=== PATIENT | female | born 1965 | race Caucasian/White ===

== ENCOUNTER 2019-06-25 12:21 | Emergency (ER) | payer SELFPAY ==
[2019-06-25] MEDS ORDERED: IPRATROPIUM/ALBUTEROL 0.5-2.5 MG/3 ML AMPUL NEB ONE (12:33)
--- NOTE | 2019-06-25 12:33 | ER Document Report ---
ED Medical Screen (RME) - General Chief Complaint: High Blood Pressure Stated Complaint: HIGH BLOOD PRESSURE Time Seen by Provider: 06/25/19 12:29 - HPI Notes: 06/25/19 12:29 Patient is a 53-year-old female with no significant past medical history aside from tobacco abuse who presents complaining of nasal congestion/discharge, postnasal drip, semi-productive cough, wheezing x5 days. She was seen by her PCM yesterday and was placed on steroids and nasal spray. She did not have an XR at that time and dx'd viral. Pt had noted elevated BP at the office yesterday and today. She is not on BP meds, but has had issues with BP in the past. No CP/SOB otherwise aside from the wheeze. No fever. I have treated and performed a rapid initial assessment of this patient. A comprehensive ED assessment and evaluation of the patient, analysis of test results and completion of medical decision making process will be conducted by additional ED providers. PHYSICAL EXAMINATION: GENERAL: Well-appearing, well-nourished and in no acute distress. A&Ox4. Answers questions appropriately. Lungs: Wheezing bilaterally. - Related Data Allergies/Adverse Reactions: No Known Allergies Allergy (Verified 06/25/19 12:28) Physical Exam - Vital signs Vitals: Temp Pulse Resp BP Pulse Ox 98.3 F 93 18 215/84 H 95 06/25/19 12:24 06/25/19 12:24 06/25/19 12:24 06/25/19 12:24 06/25/19 12:24 Course - Vital Signs Vital signs: Temp Pulse Resp BP Pulse Ox 98.3 F 93 18 215/84 H 95 06/25/19 12:24 06/25/19 12:24 06/25/19 12:24 06/25/19 12:24 06/25/19 12:24
--- NOTE | 2019-06-25 13:08 | RADIOLOGY REPORT (SQ) ---
EXAM DESCRIPTION: CHEST 2 VIEWS COMPLETED DATE/TIME: 06/25/2019 12:48 pm REASON FOR STUDY: cough COMPARISON: None. EXAM PARAMETERS: NUMBER OF VIEWS: two views TECHNIQUE: Digital Frontal and Lateral radiographic views of the chest acquired. RADIATION DOSE: NA LIMITATIONS: Overlying breast tissue. FINDINGS: LUNGS AND PLEURA: No opacities, masses or pneumothorax. No pleural effusion. MEDIASTINUM AND HILAR STRUCTURES: No masses or contour abnormalities. HEART AND VASCULAR STRUCTURES: Heart normal size. No evidence for failure. BONES: No acute findings. HARDWARE: None in the chest. OTHER: No other significant finding. IMPRESSION: NO ACUTE RADIOGRAPHIC FINDING IN THE CHEST. TECHNICAL DOCUMENTATION: JOB ID: [id number] [employer]- All Rights Reserved Reading location - IP/workstation name: [email or web address]
[2019-06-25] MEDS ORDERED: CLONIDINE HCL 0.1 MG TABLET PO ONE (13:45)
--- NOTE | 2019-06-25 13:49 | ER Document Report ---
ED General - General Chief Complaint: High Blood Pressure Stated Complaint: HIGH BLOOD PRESSURE Time Seen by Provider: 06/25/19 12:29 Notes: Patient is here to get a prescription for blood pressure medications. Coincidentally, she is also noted to be having some difficulty breathing and wheezing. Patient says she is been congested and coughing since the early part of this past week. She went to a local clinic on Thursday who told her that her condition was viral. She returned to that clinic yesterday because her blood pressure was up, 202/133, and they declined to give her medications for that because she was not an established patient. Somewhat better in 1 of those 2 visits, the patient was put on prednisone, a fairly good dose starting at 80 mg daily and declining from there. She was also put on an albuterol inhaler. She continues to have a cough and congestion and foamy phlegm being produced. Has been taking [id number] Mucinex. She is concerned and complaining primarily about her blood pressure and the fact that she could not get a prescription at the urgent care that where she was seen. Denies any fevers. Patient has a history of high blood pressure and ran out of her medications about 15 years ago and has not gotten them filled since then. Also, patient does smoke about a pack of cigarettes daily. TRAVEL OUTSIDE OF THE [place] IN LAST 30 DAYS: No - Related Data Allergies/Adverse Reactions: No Known Allergies Allergy (Verified 06/25/19 12:28) Past Medical History - Social History Smoking Status: Current Every Day Smoker Family History: Reviewed & Not Pertinent Patient has suicidal ideation: No Patient has homicidal ideation: No - Past Medical History Cardiac Medical History: Reports: Hx Hypertension Denies: Hx Coronary Artery Disease Pulmonary Medical History: Reports: Hx COPD Review of Systems - Review of Systems Notes: CONSTITUTIONAL : Denies fever. See HPI. CARDIOVASCULAR: Denies chest pain. RESPIRATORY: See HPI. GASTROINTESTINAL: Denies abdominal pain or nausea, vomiting, or diarrhea. GENITOURINARY: Denies difficulty or painful urinating, urinary frequency, blood in urine. Neuro: No loss of use of extremities. Moves all 4 extremities without any problem. Physical Exam - Vital signs Vitals: Temp Pulse Resp BP Pulse Ox 98.3 F 93 18 215/84 H 95 06/25/19 12:24 06/25/19 12:24 06/25/19 12:24 06/25/19 12:24 06/25/19 12:24 Interpretation: Hypertensive Notes: PHYSICAL EXAMINATION: GENERAL: Well-appearing, no acute distress., But patient has finished a nebulizer treatment with double DuoNeb started out front. Anxious. Blood pressure 215/84 and 194/88. HEAD: Atraumatic, normocephalic. NECK: Normal range of motion, supple. LUNGS: Breath sounds only with a few scattered wheezes bilaterally. Equal and symmetrical. Good air exchange. HEART: Regular rate and rhythm without murmurs heard. ABDOMEN: Soft, nontender. No guarding or rebound or masses felt. Course - Re-evaluation Re-evalutation: 06/25/19 13:56 At the time of my examining the patient, about 10 to 15 minutes ago, her lungs were essentially clear. She had a few scattered rhonchi and wheezes but not hardly any at all and there is very good air exchange occurring. 06/25/19 14:51 Patient's blood pressure came down very nicely to 153/82 after just 1 single 0.1 mg clonidine pill. Plan to discharge her home on that same medication twice a day. - Vital Signs Vital signs: Temp Pulse Resp BP Pulse Ox 98 F 89 16 194/80 H 94 06/25/19 13:44 06/25/19 13:44 06/25/19 13:44 06/25/19 13:44 06/25/19 13:44 Discharge - Discharge Clinical Impression: Hypertension, COPD (chronic obstructive pulmonary disease) Condition: Stable Disposition: HOME, SELF-CARE Additional Instructions: HIGH BLOOD PRESSURE REQUIRING TREATMENT: Your blood pressure is high. This is called "hypertension." Today's reading was 215/84 (normal is less than 140/90). Your history and exam suggest that this is not a temporary problem. You need treatment of your blood pressure. If left untreated, high blood pressure greatly increases your risk of heart attack and stroke. Please don't ignore this problem. If you have blood pressure medicine but aren't using it regularly, start taking it again. Some simple things you can do to help are: Get some aerobic exercise for at least 20 minutes on a daily basis. (See your doctor before beginning any new exercise program.) Eat a low-fat diet. Lose excess weight. Avoid salty foods and avoid adding salt to any of the foods you eat. Avoid diet pills, decongestants, "energizing" herbs, and other medicines that elevate blood pressure. There are many different medicines that treat blood pressure. If your medication causes unpleasant side effects, call your doctor. There are others you can try. Treating hypertension is a life-long investment in your health. CLONIDINE (CATAPRES): Clonidine is blood-pressure medicine. It works in your brain, making the nervous system relax the blood vessels. This medicine can also be used for symptoms of narcotic withdrawal. Clonidine frequently causes dry mouth, drowsiness, and dizziness. These symptoms go away as you continue to use it. Rest for the first couple of days. Don't drive or use machinery until you're back to normal. Never stop clonidine suddenly! There can be a "rebound" severe increase in blood pressure, headache, and agitation. Be sure you always have enough of the medicine. Call the doctor if you have any new symptoms such as skin rash, weakness, severe lightheadedness, chest pain, headache, or depression. Chronic Obstructive Lung Disease You have chronic obstructive lung disease (COPD). The symptoms come from emphysema (damage to small airways, with trapping of air in large sacks in the lung) and chronic bronchitis (repeated infection and damage to larger airways). The cause is almost always cigarette smoking, although dust exposure, asthma, and infections contribute. You should avoid fumes, dust, and smoke (especially tobacco smoke). Your condition will flare from time to time. There is no cure, but the symptoms can be treated. Bronchodilators (asthma medicine) are often helpful. Antibiotics help when infection is present. When shortness of breath is severe, we may prescribe cortisone medication. If medicine doesn't help enough, we can arrange for you to have an oxygen tank at home. Notify your doctor at once if sputum becomes thick, foul, or bloody, if you develop a fever or chest pain, or if your shortness of breath worsens. Continue to take your prednisone that has been prescribed and also use your inhaler as needed for wheezing. Stop Smoking You should stop smoking. The tar and chemicals in cigarette smoke are harmful. Smoking has been shown to cause: Emphysema and chronic bronchitis Lung cancer Cancer of the mouth, larynx, stomach, and pancreas Heart disease and stroke Stillbirths and miscarriage Premature aging In addition, smoking increases the chances of respiratory infections and ear infections in children of smokers, and increases the risk of cancer in persons exposed to second-hand smoke. Classes are available to help you stop smoking. If you are serious about wanting to quit, we can help arrange this therapy for you, or you can contact the local lung or cancer association. FOLLOW-UP CARE: If you have been referred to a physician for follow-up care, call the physicians office for an appointment as you were instructed or within the next two days. If you experience worsening or a significant change in your symptoms, notify the physician immediately or return to the Emergency Department at any time for re-evaluation. Prescriptions: Clonidine HCl [Catapres 0.1 mg Tablet] 0.1 mg PO Q12 #60 tablet
[2019-06-25 15:09] VITALS: BP 144/72
== END 2019-06-25 15:08 | disposition home or self-care (01) ==
LOC: ER 12:21
DX: I10 Essential (primary) hypertension (principal); J44.9 Chronic obstructive pulmonary disease, unspecified; R05 Cough; F17.210 Nicotine dependence, cigarettes, uncomplicated
CPT/HCPCS: 94640; 99283; 71046; J7620